=== PATIENT | female | born 1970 | race Caucasian/White ===

== ENCOUNTER 2017-04-24 17:33 | Emergency (ER) | payer MEDICAID, OTHER ==
[2017-04-24 19:52] VITALS: BP 119/75
--- NOTE | 2017-04-24 22:24 | UC ---
Dizzy HPI HPI Summary: pt p/w c/o 3 days of intermittant dizziness/lightheadedness and sob. pt reports that she has had 2 episodes since yesterday wherein she saw "everything going black" and needing to sit to keep from falling. denies cp, diaphoresis, n /v, left neck/jaw/arm pain. pt reports recent h/o palpitations x 2 weeks prior to onset of dizziness. pt's pcp did ekg, echo and stress test - all negative. no blood work was done. pt also reports recent stress in personal life. pt pmhx positive for hyperlipidemia. pt's father had a fatal heart attack at the age of 46. - History Of Current Complaint Chief Complaint: UCDizziness Stated Complaint: DIZZINESS Time Seen by Provider: 04/24/17 19:13 Hx Obtained From: Patient Hx Last Menstrual Period: 3 wks ago ?: No Onset/Duration: Sudden Onset, Lasting Days - 3, Still Present, Worse Since - yesterday Timing: Intermittent Episode Lasting Severity Initially: Moderate Severity Currently: Moderate Pain Intensity: 0 Character: Lightheaded, Weak, Dizzy Aggravating Factor(s): Nothing Alleviating Factor(s): Nothing Associated Signs And Symptoms: Positive: SOB, Palpitations, Unsteady Gait. Negative: Nausea, Diaphoresis, Chest Pain - Risk Factors Cardiac Risk Factors: Elevated Lipids, Family History CVA Risk Factor: Hyperlipidemia - Allergies/Home Medications Allergies/Adverse Reactions: Allergies Allergy/AdvReac Type Severity Reaction Status Date / Time Butorphanol [From Stadol] Allergy Altered Verified 04/24/17 17:46 Mental Status Home Medications: Home Medications Meloxicam 7.5 mg PO DAILY 04/24/17 [History Confirmed 04/24/17] Simvastatin TAB(NF) [Zocor(NF)] 20 mg PO 1700 04/24/17 [History Confirmed ] PMH/Surg Hx/FS Hx/Imm Hx Endocrine History Of: Denies: Diabetes Cardiovascular History Of: Reports: Cardiac Disorders - palpitations Denies: Hypertension, Pacemaker/ICD GI/ History Of: Denies: Renal Disease - Surgical History Surgical History: Yes Surgery Procedure, Year, and Place: breast reduction. LASIK EYE SURGERY FOR CORRECTIVE VISION 2009 - Family History Known Family History: Positive: None, Cardiac Disease - father had a fatal mi at age 46, Hypertension - Social History Occupation: Employed Full-time Lives: With Family Alcohol Use: None Substance Use Type: None Smoking Status (MU): Never Smoked Tobacco Have You Smoked in the Last Year: No - Immunization History Most Recent Tetanus Shot: 11/22/16 Hx Tetanus, Diphtheria Vaccination: Yes Vaccination Up to Date: Yes Review of Systems Constitutional: Fatigue Eyes: Negative ENT: Negative Respiratory: Shortness Of Breath Cardiovascular: Palpitations Gastrointestinal: Negative Motor: Negative Neurovascular: Negative Neurological: Weakness, Other - dizzy Psychological: Anxious - personal stress All Other Systems Reviewed And Are Negative: Yes Physical Exam Triage Information Reviewed: Yes Appearance: No Pain Distress, Well-Nourished, Ill-Appearing - mild Vital Signs: Initial Vital Signs Temp 99.6 F 04/24/17 17:47 Pulse 94 04/24/17 17:47 Resp 20 04/24/17 17:47 BP 127/79 04/24/17 17:47 Pulse Ox 100 04/24/17 17:47 Vital Signs Reviewed: Yes Eyes: Positive: Conjunctiva Clear. Negative: Discharge ENT: Positive: Hearing grossly normal, Pharynx normal, TMs normal Neck: Positive: Supple, Nontender, No Lymphadenopathy Respiratory: Positive: Lungs clear, Normal breath sounds, No respiratory distress, No accessory muscle use Cardiovascular: Positive: RRR, No Murmur Musculoskeletal Exam: Normal Neurological: Positive: Alert, Muscle Tone Normal, Other: - aox4, strength, sensation and reflexes intact bl, cn 2-12 intact, no cerebellar signs Psychological: Positive: Age Appropriate Behavior, Consolable - tearful but consolable Skin Exam: Normal Dizzy Course/Dx - Differential Dx/Diagnosis Differential Diagnosis/HQI/PQRI: Anxiety, GI Bleed, Metabolic Abnormality, Myocardial Infarction, Vasovagal Reaction, Other - anemia, thyroid dz Provider Diagnoses: dizzy, dyspnea, near syncope Discharge - Discharge Plan Condition: Stable Disposition: AGAINST MEDICAL ADVICE Referrals: Brodie Presley MD [Primary Care Provider] -
== END 2017-04-24 20:06 | disposition left against medical advice (07) ==
LOC: UCCORT 17:33
DX: R42 Dizziness and giddiness (principal); R55 Syncope and collapse; E78.5 Hyperlipidemia, unspecified; R00.2 Palpitations; Z88.5 Allergy status to narcotic agent
CPT/HCPCS: 93005; 99213; G0463

== ENCOUNTER 2019-04-20 18:27 | Emergency (ER) | payer OTHER ==
[2019-04-20 19:31] VITALS: BP 114/74
--- NOTE | 2019-04-20 19:52 | UC ---
General HPI - HPI Summary HPI Summary: scratched by her cat on the L arm and chest 48 hours ago. cat was scared by a noise. she cleaned the sites with peroxide then applied triple antibiotic ointment. the next am, the sites had turned red and very itchy and remain that way. she has been applying the topical antibiotic 3 x's daily. no fever. indoor cat and shots are utd. cat is acting fine. - History of Current Complaint Chief Complaint: UCSkin Stated Complaint: CAT SCRATCH Time Seen by Provider: 04/20/19 19:39 Hx Obtained From: Patient Hx Last Menstrual Period: March 29 Onset/Duration: Gradual Onset Timing: Constant Pain Intensity: 0 Associated Signs & Symptoms: Negative: Fever - Allergy/Home Medications Allergies/Adverse Reactions: Allergies Allergy/AdvReac Type Severity Reaction Status Date / Time butorphanol [From Stadol] Allergy Altered Verified 04/20/19 19:32 Mental Status Home Medications: Home Medications ALPRAZolam TAB* [Xanax TAB*] 0.25 mg PO Q6H PRN 04/20/19 [History Confirmed ] Acetaminophen [Tylenol Arthritis] 650 mg PO DAILY 04/20/19 [History Confirmed ] PMH/Surg Hx/FS Hx/Imm Hx Endocrine History: Dyslipidemia Psychological History: Anxiety - Surgical History Surgical History: Yes Surgery Procedure, Year, and Place: breast reduction. LASIK EYE SURGERY FOR CORRECTIVE VISION 2009 - Family History Known Family History: Positive: None, Cardiac Disease - father had a fatal mi at age 46, Hypertension - Social History Lives: With Family Alcohol Use: Rare Substance Use Type: None Smoking Status (MU): Never Smoked Tobacco Have You Smoked in the Last Year: No - Immunization History Most Recent Tetanus Shot: 11/22/16 Hx Tetanus, Diphtheria Vaccination: Yes Vaccination Up to Date: Yes Review of Systems All Other Systems Reviewed And Are Negative: Yes Skin: Positive: Rash Physical Exam Triage Information Reviewed: Yes Appearance: Well-Appearing Vital Signs: Initial Vital Signs Temp 98.7 F 04/20/19 19:23 Pulse 98 04/20/19 19:23 Resp 18 04/20/19 19:23 BP 114/74 04/20/19 19:23 Pulse Ox 99 04/20/19 19:23 Vital Signs Reviewed: Yes ENT: Positive: Normal ENT inspection Neck: Positive: Supple Respiratory: Positive: Lungs clear Cardiovascular: Positive: RRR Abdomen Description: Positive: Nontender Musculoskeletal: Positive: ROM Intact Neurological: Positive: Alert Psychological: Positive: Age Appropriate Behavior Skin Exam: Normal Skin: Positive: Rashes - erythema with some satellite spots around the scratch sites to L upper arm and upper central chest. no streaking or drainage. Course/Dx - Differential Dx - Multi-Symptom Differential Diagnoses: Other - will need to cover for cellulitis; however, i think that pt is having a reaction to the topical antibiotic as well so will give a po steroid x 3 days for the severe itching. - Diagnoses Provider Diagnosis: Cellulitis, Medication adverse effect Discharge - Sign-Out/Discharge Documenting (check all that apply): Patient Departure All imaging exams completed and their final reports reviewed: No Studies - Discharge Plan Condition: Stable Disposition: HOME Prescriptions: Cephalexin CAP* [Keflex CAP*] 500 mg PO TID 7 Days #21 cap predniSONE [Prednisone 20 MG TAB] 40 mg PO DAILY 2 Days #4 tablet Patient Education Materials: Cellulitis (DC), Adverse Drug Reaction (ED) Referrals: Brodie Presley MD [Primary Care Provider] - 2 Days Additional Instructions: STOP THE TRIPLE ANTIBIOTIC OINTMENT. - Billing Disposition and Condition Condition: STABLE Disposition: Home
[2019-04-20] MEDS ORDERED: Cephalexin CAP* 500 MG PO ONE (20:04)
[2019-04-20] MEDS ORDERED: predniSONE TAB* 20 MG PO ONE (20:04)
== END 2019-04-20 20:17 | disposition home or self-care (01) ==
LOC: UCCORT 18:27
DX: L03.114 Cellulitis of left upper limb (principal); Z88.8 Allergy status to other drugs, medicaments and biological substances; T36.95XA Adverse effect of unspecified systemic antibiotic, initial encounter; Y92.9 Unspecified place or not applicable
CPT/HCPCS: 99212; A9270-GY; G0463; J7512